=== PATIENT | male | born 1940 | race Caucasian/White ===

== ENCOUNTER 2020-07-23 14:16 | Inpatient (IN) ==
[2020-07-23] MEDS ORDERED: 0.9 % SODIUM CHLORIDE 1,000 ML IV ONE ×2 (14:44→16:33)
--- NOTE | 2020-07-23 15:16 | XRay Report ---
CLINICAL INFORMATION: fall COMPARISON: None. FINDINGS: No fracture identified. There is heavy ossification of the triceps tendon insertion on the olecranon. The elbow joint is normal in width and alignment without arthritic change. Soft tissues normal IMPRESSION: No fracture or posttraumatic change. Heavy ossification triceps tendon insertion on the olecranon likely stigmata of old trauma or inflammation Interpreted and Authenticated by: Arturo Min 07/23/20
--- NOTE | 2020-07-23 15:46 | Emergency Department Note ---
Fall HPI General Chief Complaint: Fall Stated Complaint: fall Time Seen by Provider: 07/23/20 14:44 Source: patient and family Mode of arrival: wheelchair History of Present Illness HPI Narrative: Narrative:80 -year-old with Parkinson's fell twice today. Last time he landed on his left arm and caused a skin tear at the elbow. He denies h itting his head or losing consciousness. He does not feel particularly lightheaded although his blood pressure is low. He is on several medicines which affect his blood pressure. Blood pressure here was in the 70s systolic. Denies fever. Denies significant pain. Denies recent illness His gives me most of his history. Additionally she notes that he had some trouble breathing this morning but it resolved. Related Data Home Medications Medication Instructions Recorded Confirmed carbidopa-levodopa 1 ea PO TID 03/27/16 07/23/20 clonazepam 1 mg PO HS 03/27/16 07/23/20 omeprazole 20 mg PO ACB 03/27/16 07/23/20 aspirin 81 mg tablet,delayed 81 mg PO QDAY 02/15/20 07/23/20 release donepezil 10 mg tablet 10 mg PO DAILY 02/15/20 07/23/20 rosuvastatin 10 mg tablet 10 mg PO QDAY 02/15/20 07/23/20 selegiline HCl 5 mg capsule 5 mg PO BID 02/15/20 07/23/20 spironolactone 25 mg tablet 25 mg PO QDAY 02/15/20 07/23/20 furosemide 20 mg tablet 20 mg PO BID tab 03/16/20 07/23/20 gabapentin 300 mg capsule 300 mg PO TID cap 03/16/20 07/23/20 losartan 100 mg tablet 50 mg PO DAILY tab 03/16/20 07/23/20 clopidogrel 75 mg PO QDAY 07/23/20 07/23/20 quetiapine 25 - 50 mg PO HS 07/23/20 07/23/20 Previous Rx's Medication Instructions Recorded oxybutynin chloride 15 mg 15 mg PO QDAY #30 tab 03/16/20 tablet,extended release 24 hr Allergies Allergy/AdvReac Type Severity Reaction Status Date / Time amlodipine [From Exforge HCT] Allergy Severe Unknown Verified 07/23/20 14:21 bisoprolol [From Ziac] Allergy Severe Unknown Verified 07/23/20 14:21 hydrochlorothiazide Allergy Severe Unknown Verified 07/23/20 14:21 [From Ziac] sulfamethoxazole Allergy Severe Unknown Verified 07/23/20 14:21 [From Septra] trimethoprim [From Septra] Allergy Severe Unknown Verified 07/23/20 14:21 valsartan [From Exforge HCT] Allergy Severe Unknown Verified 07/23/20 14:21 Penicillins [PENICILLINS] Allergy Intermediate RASH Verified 07/23/20 14:21 Beta-Blockers Allergy Unknown Unknown Verified 07/23/20 14:21 (Beta-Adrenergic Bloc Review of Systems ROS ROS Narrative: Narrative: All systems ED: reviewed and negative except as stated. [facility] Narrative Patient History Narrative: Narrative: Medical/Surgical/Family History All Active Problems (Updated 07/23/20 @ 18:20 by Jovanni Toney MD) Acute hypotension (Acute) Fall (Acute) Skin tear (Acute) Increasing shortness of breath (Acute) Atrial fibrillation (Acute) Phimosis of penis (Acute) Constipation (Acute) H/O cystoscopy (Chronic ~12/01/17) Benign neoplasm of parathyroid gland (Chronic) Urge incontinence (Chronic) History of appendectomy (Chronic) H/O shoulder surgery (Chronic ~10/2019) Presence of neurostimulator (Chronic) H/O parathyroidectomy (Chronic) Status post tonsillectomy and adenoidectomy (Chronic) H/O prostatectomy (Chronic) AAA (abdominal aortic aneurysm) (Chronic) Shingles (Chronic) Essential hypertension (Chronic) GERD (gastroesophageal reflux disease) (Chronic) FRANKY (obstructive sleep apnea) (Chronic) Dysesthesia (Chronic) Bradycardia (Chronic) Dyslipidemia (Chronic) Depression (Chronic) Pain in joint, foot, left (Chronic) Increased frequency of urination (Chronic) Other urethral stricture, male, unspecified site (Chronic) Expressive aphasia (Chronic) Actinic keratosis (Chronic) Hallucinations (Chronic) Edema (Chronic) UTI (urinary tract infection) (Chronic) Prostate cancer (Chronic) UTI (urinary tract infection) (Chronic) Paresthesia and pain of left extremity (Chronic) Parkinsons disease (Chronic) TIA on medication (Chronic) Dehydration (Chronic) Orthostatic hypotension (Chronic) Medical History (Updated 07/23/20 @ 18:20 by Jovanni Toney MD) AAA (abdominal aortic aneurysm) (Chronic) Actinic keratosis (Chronic) Benign neoplasm of parathyroid gland (Chronic) Bradycardia (Chronic) Depression (Chronic) Dysesthesia (Chronic) Dyslipidemia (Chronic) Edema (Chronic) Essential hypertension (Chronic) Expressive aphasia (Chronic) GERD (gastroesophageal reflux disease) (Chronic) Hallucinations (Chronic) Increased frequency of urination (Chronic) FRANKY (obstructive sleep apnea) (Chronic) Other urethral stricture, male, unspecified site (Chronic) Pain in joint, foot, left (Chronic) Paresthesia and pain of left extremity (Chronic) Parkinsons disease (Chronic) Prostate cancer (Chronic) Shingles (Chronic) TIA on medication (Chronic) Urge incontinence (Chronic) UTI (urinary tract infection) (Chronic) UTI (urinary tract infection) (Chronic) Surgical History H/O cystoscopy (Chronic ~12/01/17) H/O parathyroidectomy (Chronic) H/O prostatectomy (Chronic) H/O shoulder surgery (Chronic ~10/2019) Left History of appendectomy (Chronic) Presence of neurostimulator (Chronic) Status post tonsillectomy and adenoidectomy (Chronic) Family History Mother Tuberculosis Father HTN (hypertension) Angina at rest Heart disease, congenital Other Myocardial infarction Social History Smoking Status: Former smoker Alcohol Intake Frequency: a few times a week Substance Use: does not use Exam Narrative Narrative: Narrative: No acute distress resting comfortably. Normocephalic atraumatic. Conjunctive are clear sclerae white nonicteric. No nasal congestion or discharge. Oropharynx pink and moist. Neck is supple without lymphadenopathy thyromegaly. Heart is regular rate and rhythm no murmur appreciated. Lungs clear to auscultation bilaterally without wheezes rales rhonchi or respiratory distress. Looking at his left arm he has good polymerization supervisor there. He does have a skin tear lateral portion of the distal tricep measuring approximately 6 cm. He got 2 smaller skin tears at the proximal forearm. These measure approximately 1 to 2 cm each. He is able to move that arm shoulder elbow normally. No other injuries are noted. He is mentating at baseline and able to give me reasonable history. He is answering questions appropriately Course Vital Signs Vital signs: Vital Signs Temperature 97.1 F 07/23/20 14:17 Pulse Rate 75 07/23/20 14:17 Respiratory Rate 20 07/23/20 14:17 Blood Pressure 78/57 07/23/20 14:17 Pulse Oximetry (%) 95 07/23/20 14:17 Temperature 99.0 F 07/23/20 16:54 Pulse Rate 73 07/23/20 18:46 Respiratory Rate 17 07/23/20 18:31 Blood Pressure 130/83 07/23/20 18:46 Pulse Oximetry (%) 96 07/23/20 18:46 MDM MDM Narrative Medical decision making narrative: Narrative: Fall with skin tears. We will x- ray his elbow. Concern for hypotension especially being on multiple blood pressure medicines as well as anticholinergics and Parkinson drugs. We will give him IV fluids to help with his blood pressure and will get some lab. Check EKG as well. EKG shows A. fib -this is chronic for him. He had a watchman procedure done which has not helped him much Reevaluation his forehead was feeling hot to the touch. With additional history from his consider diagnosis of Covid will screen with Ivett. Blood cultures start Rocephin-consider diagnosis of sepsis now. We will keep him in isolation. He does have mild leukocytosis. Blood pressure seems to be responding to fluids Ivett test was negative for Covid but he is starting to develop significant symptoms so concern for sepsis from some infectious issue. Initially the patient and his did not give me a history of respiratory issues but now they are saying that he was short of breath this morning-question the validity of the history I received so far. Anyways we will keep him on isolation precautions and order follow-up testing for Covid. His ankles are starting to swell from the 2 L of normal saline IV fluids we gave him-so there is concern now for making CHF worse in the interest of getting his blood pressure better. We will check a repeat chest x-ray. Orthostatics are significantly abnormal. Urine does not show significant infection Chest x-ray shows no significant change. I revisited with the patient and his . He does have some slightly worse pedal edema. At this time we are working to see if we can get a bed for him because of concern for hypotension-I do not think he is safe to go home as he cannot even stand up at this time because of significant hypotension. We are working on sorting out getting him an appropriate Covid test in a hospital bed and awaiting to hear back from nursing appliance service supervisor Shift change came and I checked the patient out to Dr. Maya for further evaluation and care-final disposition per him-at the time of handoff we were waiting to hear back from nursing appliance service supervisor. Lab Data Lab results reviewed: Yes I reviewed the patient's lab results. Result diagrams: 07/23/20 14:45 Labs: Lab Results 07/23/20 07/23/20 07/23/20 Range/Units 14:45 14:45 14:45 WBC 12.1 H (4.5-11.0) K/mcL RBC 5.31 (4.50-5.90) M/mcL Hgb 16.1 (13.5-16.5) g/dL Hct 48.9 (41.0-55.0) % POC Hct 50 (41-55) % MCV 92.1 (80.0-100.0) fL MCH 30.3 (26.0-34.0) pg MCHC 32.9 (31.0-36.0) g/dL RDW 13.4 (11.5-14.5) % Plt Count 205 (140-440) K/mcL MPV 11.2 H (7.4-10.4) fL Neut % (Auto) 72.8 (38.0-78.0) % Lymph % (Auto) 15.5 (15.0-49.0) % [place] % (Auto) 8.0 (1.0-12.0) % Eos % (Auto) 3.1 (0.0-7.0) % Baso % (Auto) 0.6 (0.0-2.0) % Lymph # (Auto) 1.88 (1.50-4.80) K/mcL Dillon # (Auto) 0.97 H (0.10-0.90) K/mcL Eos # (Auto) 0.37 (0.00-0.70) K/mcL Baso # (Auto) 0.07 (0.00-0.20) K/mcL Absolute Neutrophils 8.81 H (1.80-8.00) K/mcL VBG Lactic Acid (0.5-2.0) mmol/L POC Sodium 143 (133-145) mEq/L POC Potassium 3.7 (3.3-5.1) mEql/L POC Chloride 105 (96-108) mEq/L POC Total CO2 26 (22-30) mmol/L POC BUN 27 H (6-20) mg/dL POC Creatinine 1.5 H (0.6-1.2) mg/dL POC Glucose 84 (70-105) mg/dL POC WB Ioniz Calcium 1.00 L (1.16-1.32) mmEq/L Procalcitonin 0.10 H (<0.10) ng/mL Urine Color Urine Appearance (Clear) Urine pH (5.0-9.0) Ur Specific [place] (1.000-1.035) Urine Protein (Negative) mg/dL Urine Glucose (UA) (Negative) mg/dL Urine Ketones (Negative) mg/dL Urine Occult Blood (Negative) mg/dL Urine Nitrate (Negative) Urine Bilirubin (Negative) mg/dL Urine Urobilinogen mg/dL Ur Leukocyte Esterase (Negative) /ug Urine RBC (0-3) /hpf Urine WBC (0-4) /hpf Ur Squamous Epith Cells (0-4) /hpf Urine Bacteria (0) /hpf Hyaline Casts (0-2) /lph Urine Mucus (None) /hpf Ur Culture Indicated? 07/23/20 07/23/20 Range/Units 15:14 15:47 WBC (4.5-11.0) K/mcL RBC (4.50-5.90) M/mcL Hgb (13.5-16.5) g/dL Hct (41.0-55.0) % POC Hct (41-55) % MCV (80.0-100.0) fL MCH (26.0-34.0) pg MCHC (31.0-36.0) g/dL RDW (11.5-14.5) % Plt Count (140-440) K/mcL MPV (7.4-10.4) fL Neut % (Auto) (38.0-78.0) % Lymph % (Auto) (15.0-49.0) % [place] % (Auto) (1.0-12.0) % Eos % (Auto) (0.0-7.0) % Baso % (Auto) (0.0-2.0) % Lymph # (Auto) (1.50-4.80) K/mcL [place] # (Auto) (0.10-0.90) K/mcL Eos # (Auto) (0.00-0.70) K/mcL Baso # (Auto) (0.00-0.20) K/mcL Absolute Neutrophils (1.80-8.00) K/mcL VBG Lactic Acid 1.9 (0.5-2.0) mmol/L POC Sodium (133-145) mEq/L POC Potassium (3.3-5.1) mEql/L POC Chloride (96-108) mEq/L POC Total CO2 (22-30) mmol/L POC BUN (6-20) mg/dL POC Creatinine (0.6-1.2) mg/dL POC Glucose (70-105) mg/dL POC WB Ioniz Calcium (1.16-1.32) mmEq/L Procalcitonin (<0.10) ng/mL Urine Color Yellow Urine Appearance Clear (Clear) Urine pH 5.0 (5.0-9.0) Ur Specific [place] 1.014 (1.000-1.035) Urine Protein 30 A (Negative) mg/dL Urine Glucose (UA) Negative (Negative) mg/dL Urine Ketones Negative (Negative) mg/dL Urine Occult Blood 0.03 (Negative) mg/dL Urine Nitrate Negative (Negative) Urine Bilirubin Negative (Negative) mg/dL Urine Urobilinogen Negative mg/dL Ur Leukocyte Esterase Negative (Negative) /ug Urine RBC 2 (0-3) /hpf Urine WBC 4 (0-4) /hpf Ur Squamous Epith Cells 2 (0-4) /hpf Urine Bacteria None (0) /hpf Hyaline Casts 16 H (0-2) /lph Urine Mucus Many A (None) /hpf Ur Culture Indicated? No Radiology Data Radiology results reviewed: Yes I reviewed the patient's radiology results. Radiology results narrative: X-ray of the elbow shows no acute finding. Chronic findings on report EKG Data EKG #1: EKG attestation: Yes I reviewed and interpreted this EKG. EKG results narrative: Atrial fibrillation with right bundle branch block Discharge Plan Patient/Caregiver Discharge Instructions Pt seen by A R SPECIALIST/PA only: No Clinical Impression: Acute hypotension, Skin tear, Increasing shortness of breath Atrial fibrillation Qualifiers: Atrial fibrillation type: unspecified chronic Qualified Code(s): I48.20 - Chronic atrial fibrillation, unspecified Fall Qualifiers: Encounter type: initial encounter Qualified Code(s): W19.XXXA - Unspecified fall, initial encounter Patient Disposition: Still a Patient Condition: Fair Follow up with: Brian Adam MD [Primary Care Provider] - Prescriptions: No Action spironolactone 25 mg tablet 25 mg PO QDAY RF: 0 aspirin [Adult Low Dose Aspirin] 81 mg tablet,delayed release (DR/EC) 81 mg PO QDAY RF: 0 selegiline HCl 5 mg capsule 5 mg PO BID RF: 0 donepezil 10 mg tablet 10 mg PO DAILY RF: 0 rosuvastatin 10 mg tablet 10 mg PO QDAY RF: 0 furosemide 20 mg tablet 20 mg PO BID RF: 0 gabapentin 300 mg capsule 300 mg PO TID RF: 0 clonazepam 1 MG tablet 1 mg PO HS RF: 0 omeprazole 20 MG capsule 20 mg PO ACB RF: 0 carbidopa-levodopa 1 EACH tablet,disintegrating 1 ea PO TID RF: 0 losartan 100 mg tablet 50 mg PO DAILY RF: 0 clopidogrel 75 mg Tablet 75 mg PO QDAY RF: 0 quetiapine 50 mg tablet 25 - 50 mg PO HS RF: 0 oxybutynin chloride 15 mg tablet extended release 24hr 15 mg PO QDAY Qty: 30 RF: 11
[2020-07-23 15:49] LABS: POC Blood Urea Nitrogen 27 mg/dL (6-20); POC CO2 26 mmol/L (22-30); POC Chloride 105 mEq/L (96-108); POC Creatinine 1.5 mg/dL (0.6-1.2); POC Glucose, Random 84 mg/dL (70-105); POC Hematocrit 50 % (41-55); POC Potassium 3.7 mEql/L (3.3-5.1); POC Sodium 143 mEq/L (133-145)
[2020-07-23 15:56] LABS: Basophils # (Auto) 0.07 K/mcL (0.00-0.20); Basophils % (Auto) 0.6 % (0.0-2.0); Eosinophils # (Auto) 0.37 K/mcL (0.00-0.70); Eosinophils % (Auto) 3.1 % (0.0-7.0); Hematocrit 48.9 % (41.0-55.0); Hemoglobin 16.1 g/dL (13.5-16.5); Lymphocytes # (Auto) 1.88 K/mcL (1.50-4.80); Lymphocytes % (Auto) 15.5 % (15.0-49.0); Mean Cell Volume 92.1 fL (80.0-100.0); Mean Corpuscular HGB Conc 32.9 g/dL (31.0-36.0); Mean Platelet Volume 11.2 fL (7.4-10.4); Monocytes # (Auto) 0.97 K/mcL (0.10-0.90); Neutrophils % (Auto) 72.8 % (38.0-78.0); Platelet Count 205 K/mcL (140-440); RBC 5.31 M/mcL (4.50-5.90); Red Cell Distribution Width 13.4 % (11.5-14.5); WBC 12.1 K/mcL (4.5-11.0)
--- NOTE | 2020-07-23 16:31 | XRay Report ---
CLINICAL INFORMATION: SOB COMPARISON: None. FINDINGS: Heart size, mediastinum and pulmonary vessels are unremarkable. Battery pack and lead wires from presumed thalamic stimulators are unremarkable. There is minor bibasilar atelectasis. No effusion IMPRESSION: Negative exam Interpreted and Authenticated by: Arturo Min 07/23/20
[2020-07-23] MEDS ORDERED: cefTRIAXone 1 GM VIAL IV ONE (16:33)
[2020-07-23 16:46] LABS: Appearance,Urine CLEAR (Clear); Bilirubin,Urine Negative (Negative); Color,Urine YELLOW; Culture Indicated,Urine No; Glucose,Urine (UA) Negative (Negative); Ketones,Urine Negative (Negative); Leukocyte Esterase,Urine Negative /ug (Negative); Mucus,Urine MANY /hpf; Nitrate,Urine Negative (Negative); Protein,Urine 30 mg/dL (Negative); Specific Gravity,Urine 1.014 (1.000-1.035); Urine Blood 0.03 mg/dL (Negative); Urine Hyaline Cast 16 /lph (0-2); Urine RBC 2 /hpf (0-3); Urine Squamous Epithelial Cell 2 /hpf (0-4); Urine WBC 4 /hpf (0-4); Urobilinogen,Urine Negative
--- NOTE | 2020-07-23 19:28 | Emergency Department Note ---
HPI General Chief complaint: Fall Stated complaint: fall Time Seen by Provider: 07/23/20 14:44 Source: patient and family Mode of arrival: wheelchair Limitations: no limitations History of Present Illness HPI Narrative: Narrative: Patient signed out to me by Dr. Curtis for full history and physical please refer to his note. Related Data Home Medications Medication Instructions Recorded Confirmed carbidopa-levodopa 1 ea PO TID 03/27/16 07/23/20 clonazepam 1 mg PO HS 03/27/16 07/23/20 omeprazole 20 mg PO ACB 03/27/16 07/23/20 aspirin 81 mg tablet,delayed 81 mg PO QDAY 02/15/20 07/23/20 release donepezil 10 mg tablet 10 mg PO DAILY 02/15/20 07/23/20 rosuvastatin 10 mg tablet 10 mg PO QDAY 02/15/20 07/23/20 selegiline HCl 5 mg capsule 5 mg PO BID 02/15/20 07/23/20 spironolactone 25 mg tablet 25 mg PO QDAY 02/15/20 07/23/20 furosemide 20 mg tablet 20 mg PO BID tab 03/16/20 07/23/20 gabapentin 300 mg capsule 300 mg PO TID cap 03/16/20 07/23/20 losartan 100 mg tablet 50 mg PO DAILY tab 03/16/20 07/23/20 clopidogrel 75 mg PO QDAY 07/23/20 07/23/20 quetiapine 25 - 50 mg PO HS 07/23/20 07/23/20 Previous Rx's Medication Instructions Recorded oxybutynin chloride 15 mg 15 mg PO QDAY #30 tab 03/16/20 tablet,extended release 24 hr Allergies Allergy/AdvReac Type Severity Reaction Status Date / Time amlodipine [From Exforge HCT] Allergy Severe Unknown Verified 07/23/20 14:21 bisoprolol [From Ziac] Allergy Severe Unknown Verified 07/23/20 14:21 hydrochlorothiazide Allergy Severe Unknown Verified 07/23/20 14:21 [From Ziac] sulfamethoxazole Allergy Severe Unknown Verified 07/23/20 14:21 [From Septra] trimethoprim [From Septra] Allergy Severe Unknown Verified 07/23/20 14:21 valsartan [From Exforge HCT] Allergy Severe Unknown Verified 07/23/20 14:21 Penicillins [PENICILLINS] Allergy Intermediate RASH Verified 07/23/20 14:21 Beta-Blockers Allergy Unknown Unknown Verified 07/23/20 14:21 (Beta-Adrenergic Bloc Review of Systems ROS ROS Narrative: Narrative: PFSH Narrative Patient History Narrative: Narrative: Medical/Surgical/Family History All Active Problems (Updated 07/23/20 @ 18:20 by Jovanni Toney MD) Acute hypotension (Acute) Fall (Acute) Skin tear (Acute) Increasing shortness of breath (Acute) Atrial fibrillation (Acute) Phimosis of penis (Acute) Constipation (Acute) H/O cystoscopy (Chronic ~12/01/17) Benign neoplasm of parathyroid gland (Chronic) Urge incontinence (Chronic) History of appendectomy (Chronic) H/O shoulder surgery (Chronic ~10/2019) Presence of neurostimulator (Chronic) H/O parathyroidectomy (Chronic) Status post tonsillectomy and adenoidectomy (Chronic) H/O prostatectomy (Chronic) AAA (abdominal aortic aneurysm) (Chronic) Shingles (Chronic) Essential hypertension (Chronic) GERD (gastroesophageal reflux disease) (Chronic) FRANKY (obstructive sleep apnea) (Chronic) Dysesthesia (Chronic) Bradycardia (Chronic) Dyslipidemia (Chronic) Depression (Chronic) Pain in joint, foot, left (Chronic) Increased frequency of urination (Chronic) Other urethral stricture, male, unspecified site (Chronic) Expressive aphasia (Chronic) Actinic keratosis (Chronic) Hallucinations (Chronic) Edema (Chronic) UTI (urinary tract infection) (Chronic) Prostate cancer (Chronic) UTI (urinary tract infection) (Chronic) Paresthesia and pain of left extremity (Chronic) Parkinsons disease (Chronic) TIA on medication (Chronic) Dehydration (Chronic) Orthostatic hypotension (Chronic) Medical History (Updated 07/23/20 @ 18:20 by Jovanni Toney MD) AAA (abdominal aortic aneurysm) (Chronic) Actinic keratosis (Chronic) Benign neoplasm of parathyroid gland (Chronic) Bradycardia (Chronic) Depression (Chronic) Dysesthesia (Chronic) Dyslipidemia (Chronic) Edema (Chronic) Essential hypertension (Chronic) Expressive aphasia (Chronic) GERD (gastroesophageal reflux disease) (Chronic) Hallucinations (Chronic) Increased frequency of urination (Chronic) FRANKY (obstructive sleep apnea) (Chronic) Other urethral stricture, male, unspecified site (Chronic) Pain in joint, foot, left (Chronic) Paresthesia and pain of left extremity (Chronic) Parkinsons disease (Chronic) Prostate cancer (Chronic) Shingles (Chronic) TIA on medication (Chronic) Urge incontinence (Chronic) UTI (urinary tract infection) (Chronic) UTI (urinary tract infection) (Chronic) Surgical History H/O cystoscopy (Chronic ~12/01/17) H/O parathyroidectomy (Chronic) H/O prostatectomy (Chronic) H/O shoulder surgery (Chronic ~10/2019) Left History of appendectomy (Chronic) Presence of neurostimulator (Chronic) Status post tonsillectomy and adenoidectomy (Chronic) Family History Mother Tuberculosis Father HTN (hypertension) Angina at rest Heart disease, congenital Other Myocardial infarction Social History Smoking Status: Former smoker Alcohol Intake Frequency: a few times a week Substance Use: does not use Exam Narrative Narrative: Narrative: General Limitations: no limitations Course Vital Signs Vital signs: Vital Signs Temperature 97.1 F 07/23/20 14:17 Pulse Rate 75 07/23/20 14:17 Respiratory Rate 20 07/23/20 14:17 Blood Pressure 78/57 07/23/20 14:17 Pulse Oximetry (%) 95 07/23/20 14:17 Temperature 99.0 F 07/23/20 16:54 Pulse Rate 65 07/23/20 19:41 Respiratory Rate 19 07/23/20 19:41 Blood Pressure 128/84 07/23/20 19:41 Pulse Oximetry (%) 96 07/23/20 19:41 MDM MDM Narrative Medical decision making narrative: Narrative: Patient signed out to me pending admission. I did speak with Dr. Lowery who did agree to admit the patient to their facility. Patient is admitted in stable condition. Lab Data Result diagrams: 07/23/20 14:45 07/23/20 14:45 Labs: Lab Results 07/23/20 07/23/20 07/23/20 Range/Units 14:45 14:45 14:45 WBC 12.1 H (4.5-11.0) K/mcL RBC 5.31 (4.50-5.90) M/mcL Hgb 16.1 (13.5-16.5) g/dL Hct 48.9 (41.0-55.0) % POC Hct 50 (41-55) % MCV 92.1 (80.0-100.0) fL MCH 30.3 (26.0-34.0) pg MCHC 32.9 (31.0-36.0) g/dL RDW 13.4 (11.5-14.5) % Plt Count 205 (140-440) K/mcL MPV 11.2 H (7.4-10.4) fL Neut % (Auto) 72.8 (38.0-78.0) % Lymph % (Auto) 15.5 (15.0-49.0) % [place] % (Auto) 8.0 (1.0-12.0) % Eos % (Auto) 3.1 (0.0-7.0) % Baso % (Auto) 0.6 (0.0-2.0) % Lymph # (Auto) 1.88 (1.50-4.80) K/mcL [place] # (Auto) 0.97 H (0.10-0.90) K/mcL Eos # (Auto) 0.37 (0.00-0.70) K/mcL Baso # (Auto) 0.07 (0.00-0.20) K/mcL Absolute Neutrophils 8.81 H (1.80-8.00) K/mcL VBG Lactic Acid (0.5-2.0) mmol/L POC Sodium 143 (133-145) mEq/L Sodium (133-145) mmol/L POC Potassium 3.7 (3.3-5.1) mEql/L Potassium (3.3-5.1) mmol/L POC Chloride 105 (96-108) mEq/L Chloride (96-108) mmol/L Carbon Dioxide (22-30) mmol/L POC Total CO2 26 (22-30) mmol/L Anion Gap (8.0-16.0) POC BUN 27 H (6-20) mg/dL BUN (8-23) mg/dL Creatinine (0.7-1.2) mg/dL POC Creatinine 1.5 H (0.6-1.2) mg/dL GFR Calculation Glucose (70-105) mg/dL POC Glucose 84 (70-105) mg/dL Uric Acid (2.5-8.0) mg/dL Calcium (8.6-10.4) mg/dL POC WB Ioniz Calcium 1.00 L (1.16-1.32) mmEq/L Phosphorus (2.5-4.5) mg/dL Magnesium (1.6-2.5) mg/dL Total Bilirubin (0.1-1.0) mg/dL Direct Bilirubin (<0.3) mg/dL GGT (8-61) U/L AST (<40) U/L ALT (<40) U/L Alkaline Phosphatase (39-117) U/L Lactate Dehydrogenase (135-225) U/L Total Protein (5.9-8.4) gm/dL Albumin (3.2-5.2) gm/dL Globulin (2.2-3.7) gm/dL Albumin/Globulin Ratio (1.0-2.3) Triglycerides (<150) mg/dL Procalcitonin 0.10 H (<0.10) ng/mL Urine Color Urine Appearance (Clear) Urine pH (5.0-9.0) Ur Specific [place] (1.000-1.035) Urine Protein (Negative) mg/dL Urine Glucose (UA) (Negative) mg/dL Urine Ketones (Negative) mg/dL Urine Occult Blood (Negative) mg/dL Urine Nitrate (Negative) Urine Bilirubin (Negative) mg/dL Urine Urobilinogen mg/dL Ur Leukocyte Esterase (Negative) /ug Urine RBC (0-3) /hpf Urine WBC (0-4) /hpf Ur Squamous Epith Cells (0-4) /hpf Urine Bacteria (0) /hpf Hyaline Casts (0-2) /lph Urine Mucus (None) /hpf Ur Culture Indicated? 07/23/20 07/23/20 07/23/20 Range/Units 14:45 15:14 15:47 WBC (4.5-11.0) K/mcL RBC (4.50-5.90) M/mcL Hgb (13.5-16.5) g/dL Hct (41.0-55.0) % POC Hct (41-55) % MCV (80.0-100.0) fL MCH (26.0-34.0) pg MCHC (31.0-36.0) g/dL RDW (11.5-14.5) % Plt Count (140-440) K/mcL MPV (7.4-10.4) fL Neut % (Auto) (38.0-78.0) % Lymph % (Auto) (15.0-49.0) % [place] % (Auto) (1.0-12.0) % Eos % (Auto) (0.0-7.0) % Baso % (Auto) (0.0-2.0) % Lymph # (Auto) (1.50-4.80) K/mcL [place] # (Auto) (0.10-0.90) K/mcL Eos # (Auto) (0.00-0.70) K/mcL Baso # (Auto) (0.00-0.20) K/mcL Absolute Neutrophils (1.80-8.00) K/mcL VBG Lactic Acid 1.9 (0.5-2.0) mmol/L POC Sodium (133-145) mEq/L Sodium 142 (133-145) mmol/L POC Potassium (3.3-5.1) mEql/L Potassium 3.8 (3.3-5.1) mmol/L POC Chloride (96-108) mEq/L Chloride 102 (96-108) mmol/L Carbon Dioxide 20 L (22-30) mmol/L POC Total CO2 (22-30) mmol/L Anion Gap 20.0 H (8.0-16.0) POC BUN (6-20) mg/dL BUN 24 H (8-23) mg/dL Creatinine 1.5 H (0.7-1.2) mg/dL POC Creatinine (0.6-1.2) mg/dL GFR Calculation 44 Glucose 83 (70-105) mg/dL POC Glucose (70-105) mg/dL Uric Acid 7.0 (2.5-8.0) mg/dL Calcium 9.0 (8.6-10.4) mg/dL POC WB Ioniz Calcium (1.16-1.32) mmEq/L Phosphorus 2.2 L (2.5-4.5) mg/dL Magnesium 2.3 (1.6-2.5) mg/dL Total Bilirubin 0.4 (0.1-1.0) mg/dL Direct Bilirubin < 0.2 (<0.3) mg/dL GGT 16 (8-61) U/L AST 30 (<40) U/L ALT 21 (<40) U/L Alkaline Phosphatase 106 (39-117) U/L Lactate Dehydrogenase 236 H (135-225) U/L Total Protein 6.7 (5.9-8.4) gm/dL Albumin 4.0 (3.2-5.2) gm/dL Globulin 2.7 (2.2-3.7) gm/dL Albumin/Globulin Ratio 1.5 (1.0-2.3) Triglycerides 94 (<150) mg/dL Procalcitonin (<0.10) ng/mL Urine Color Yellow Urine Appearance Clear (Clear) Urine pH 5.0 (5.0-9.0) Ur Specific [place] 1.014 (1.000-1.035) Urine Protein 30 A (Negative) mg/dL Urine Glucose (UA) Negative (Negative) mg/dL Urine Ketones Negative (Negative) mg/dL Urine Occult Blood 0.03 (Negative) mg/dL Urine Nitrate Negative (Negative) Urine Bilirubin Negative (Negative) mg/dL Urine Urobilinogen Negative mg/dL Ur Leukocyte Esterase Negative (Negative) /ug Urine RBC 2 (0-3) /hpf Urine WBC 4 (0-4) /hpf Ur Squamous Epith Cells 2 (0-4) /hpf Urine Bacteria None (0) /hpf Hyaline Casts 16 H (0-2) /lph Urine Mucus Many A (None) /hpf Ur Culture Indicated? No Discharge Plan Patient/Caregiver Discharge Instructions Pt seen by PROPERTY ANALYST/PA only: No Clinical Impression: Acute hypotension, Skin tear, Increasing shortness of breath Atrial fibrillation Qualifiers: Atrial fibrillation type: unspecified chronic Qualified Code(s): I48.20 - Chronic atrial fibrillation, unspecified Fall Qualifiers: Encounter type: initial encounter Qualified Code(s): W19.XXXA - Unspecified fall, initial encounter Patient Disposition: Xfer As Inpt ([facility]) Condition: Fair Follow up with: Brian Adam MD [Primary Care Provider] - Prescriptions: No Action spironolactone 25 mg tablet 25 mg PO QDAY RF: 0 aspirin [Adult Low Dose Aspirin] 81 mg tablet,delayed release (DR/EC) 81 mg PO QDAY RF: 0 selegiline HCl 5 mg capsule 5 mg PO BID RF: 0 donepezil 10 mg tablet 10 mg PO DAILY RF: 0 rosuvastatin 10 mg tablet 10 mg PO QDAY RF: 0 furosemide 20 mg tablet 20 mg PO BID RF: 0 gabapentin 300 mg capsule 300 mg PO TID RF: 0 clonazepam 1 MG tablet 1 mg PO HS RF: 0 omeprazole 20 MG capsule 20 mg PO ACB RF: 0 carbidopa-levodopa 1 EACH tablet,disintegrating 1 ea PO TID RF: 0 losartan 100 mg tablet 50 mg PO DAILY RF: 0 clopidogrel 75 mg Tablet 75 mg PO QDAY RF: 0 quetiapine 50 mg tablet 25 - 50 mg PO HS RF: 0 oxybutynin chloride 15 mg tablet extended release 24hr 15 mg PO QDAY Qty: 30 RF: 11
--- NOTE | 2020-07-23 20:05 | Internal Med History&Physical ---
HPI History of Present Illness Patient information: Note initiated : 07/23/20 at 7:50 pm Service Date, if different from initiated Date: [] Patient: Manny Islas a 80 y/o M admitted on for fall. Chief Complaint: [] History of present illness: Mr. Islas is a 80 year old M Who presents after falling several times a day. Patient has a history of Parkinson's. And per his he has been getting weaker over the past 6 to 12 months. He does have a history of peripheral edema and is on furosemide and spironolactone. His furosemide was increased lately. Is also on gabapentin. Per his he has episodes where he seems weaker and not doing well this happens probably once a week. It is times where he will fall multiple times in a day and then will not fall at all for couple weeks. The reason his brought him in today is because when he fell he developed large wound on his arm and when EMS arrived to help bandage it they recommended him going to the ER. In ER was hypotensive with a 78/57 receive IV fluid with resolution of his blood pressure. Per the ER note he had positive orthostatic vital signs. He is weak and unable to stand. Per his he said he was little short of breath this morning but did not resolve. Has a mild cough. Him and his report that he does cough with food and drink and taking medications. Chest x-ray was done several times and was unremarkable. Calcitonin was low. He had a mildly elevated white blood cell count but was afebrile. Urinalysis was unremarkable. He has a history of paroxysmal atrial fibrillation and had a watchman device placed at [facility] in February. At that time he was continued on his aspirin and started on Xarelto for 6 weeks and then after 6 weeks of Xarelto was stopped and was put back on his Plavix. He has a history of TIAs An echocardiogram showed good ejection fraction and good right ventricular systolic function. Review of Systems: Positives as above. Denies headache/fever/chills/nausea/vomiting/chest or abdominal pain/diarrhea. Remaining 10 point review of system reviewed negative PFSH PFSH All Active Problems (Updated 07/23/20 @ 18:20 by Jovanni Toney MD) Acute hypotension (Acute) Fall (Acute) Skin tear (Acute) Increasing shortness of breath (Acute) Atrial fibrillation (Acute) Phimosis of penis (Acute) Constipation (Acute) H/O cystoscopy (Chronic ~12/01/17) Benign neoplasm of parathyroid gland (Chronic) Urge incontinence (Chronic) History of appendectomy (Chronic) H/O shoulder surgery (Chronic ~10/2019) Presence of neurostimulator (Chronic) H/O parathyroidectomy (Chronic) Status post tonsillectomy and adenoidectomy (Chronic) H/O prostatectomy (Chronic) AAA (abdominal aortic aneurysm) (Chronic) Shingles (Chronic) Essential hypertension (Chronic) GERD (gastroesophageal reflux disease) (Chronic) FRANKY (obstructive sleep apnea) (Chronic) Dysesthesia (Chronic) Bradycardia (Chronic) Dyslipidemia (Chronic) Depression (Chronic) Pain in joint, foot, left (Chronic) Increased frequency of urination (Chronic) Other urethral stricture, male, unspecified site (Chronic) Expressive aphasia (Chronic) Actinic keratosis (Chronic) Hallucinations (Chronic) Edema (Chronic) UTI (urinary tract infection) (Chronic) Prostate cancer (Chronic) UTI (urinary tract infection) (Chronic) Paresthesia and pain of left extremity (Chronic) Parkinsons disease (Chronic) TIA on medication (Chronic) Dehydration (Chronic) Orthostatic hypotension (Chronic) Medical History (Updated 07/23/20 @ 18:20 by Jovanni Toney MD) AAA (abdominal aortic aneurysm) (Chronic) Actinic keratosis (Chronic) Benign neoplasm of parathyroid gland (Chronic) Bradycardia (Chronic) Depression (Chronic) Dysesthesia (Chronic) Dyslipidemia (Chronic) Edema (Chronic) Essential hypertension (Chronic) Expressive aphasia (Chronic) GERD (gastroesophageal reflux disease) (Chronic) Hallucinations (Chronic) Increased frequency of urination (Chronic) FRANKY (obstructive sleep apnea) (Chronic) Other urethral stricture, male, unspecified site (Chronic) Pain in joint, foot, left (Chronic) Paresthesia and pain of left extremity (Chronic) Parkinsons disease (Chronic) Prostate cancer (Chronic) Shingles (Chronic) TIA on medication (Chronic) Urge incontinence (Chronic) UTI (urinary tract infection) (Chronic) UTI (urinary tract infection) (Chronic) Surgical History H/O cystoscopy (Chronic ~12/01/17) H/O parathyroidectomy (Chronic) H/O prostatectomy (Chronic) H/O shoulder surgery (Chronic ~10/2019) Left History of appendectomy (Chronic) Presence of neurostimulator (Chronic) Status post tonsillectomy and adenoidectomy (Chronic) Family History Mother Tuberculosis Father HTN (hypertension) Angina at rest Heart disease, congenital Other Myocardial infarction Social History marital status: occupational status: retired smoking status: Former smoker alcohol intake frequency: a few times a week substance use type: does not use MEDS/ALLERGIES Home Medications and Allergies Home Medications Medication Instructions Recorded Confirmed Type carbidopa-levodopa 1 ea PO TID 03/27/16 07/23/20 History clonazepam 1 mg PO HS 03/27/16 07/23/20 History omeprazole 20 mg PO ACB 03/27/16 07/23/20 History aspirin 81 mg tablet,delayed 81 mg PO QDAY 02/15/20 07/23/20 History release donepezil 10 mg tablet 10 mg PO DAILY 02/15/20 07/23/20 History rosuvastatin 10 mg tablet 10 mg PO QDAY 02/15/20 07/23/20 History selegiline HCl 5 mg capsule 5 mg PO BID 02/15/20 07/23/20 History spironolactone 25 mg tablet 25 mg PO QDAY 02/15/20 07/23/20 History furosemide 20 mg tablet 20 mg PO BID tab 03/16/20 07/23/20 History gabapentin 300 mg capsule 300 mg PO TID cap 03/16/20 07/23/20 History losartan 100 mg tablet 50 mg PO DAILY tab 03/16/20 07/23/20 History oxybutynin chloride 15 mg 15 mg PO QDAY #30 tab 03/16/20 07/23/20 Rx tablet,extended release 24 hr clopidogrel 75 mg PO QDAY 07/23/20 07/23/20 History quetiapine 25 - 50 mg PO HS 07/23/20 07/23/20 History Allergies Allergy/AdvReac Type Severity Reaction Status Date / Time amlodipine [From Exforge HCT] Allergy Severe Unknown Verified 07/23/20 14:21 bisoprolol [From Ziac] Allergy Severe Unknown Verified 07/23/20 14:21 hydrochlorothiazide Allergy Severe Unknown Verified 07/23/20 14:21 [From Ziac] sulfamethoxazole Allergy Severe Unknown Verified 07/23/20 14:21 [From Septra] trimethoprim [From Septra] Allergy Severe Unknown Verified 07/23/20 14:21 valsartan [From Exforge HCT] Allergy Severe Unknown Verified 07/23/20 14:21 Penicillins [PENICILLINS] Allergy Intermediate RASH Verified 07/23/20 14:21 Beta-Blockers Allergy Unknown Unknown Verified 07/23/20 14:21 (Beta-Adrenergic Bloc EXAM Constitutional Vitals: Temp Pulse Resp BP Pulse Ox 99.0 F 73 17 133/83 98 07/23/20 16:54 07/23/20 19:16 07/23/20 19:16 07/23/20 19:16 07/23/20 19:16 Exam: General: Appears weak, No acute Distress Eyes/N/T: EOMI, PERRL, dry MM Head/Neck: neck supple, normocephalic atraumatic CV: irre irreg, No murmurs, normal s1/s2 Pulm: Clear b/l, no wheezing/rhonchi/rales Abd: soft, nontender, +BS x4 Ext: no clubbing/cyanosis 2+ b/l LE Neuro: Somewhat lethargic, no focal deficits, moves all extremities, CN 2-12 grossly intact, symmetrical strength b/l upper/lower, sensations intact b/l upper/lower Skin: warm/dry DATA Data Completed and Pending Labs: Labs from last 24 hours 07/23/20 07/23/20 07/23/20 15:47 15:14 14:45 WBC RBC Hgb Hct POC Hct MCV MCH MCHC RDW Plt Count MPV Neut % (Auto) Lymph % (Auto) [place] % (Auto) Eos % (Auto) Baso % (Auto) Lymph # (Auto) [place] # (Auto) Eos # (Auto) Baso # (Auto) Absolute Neutrophils Platelet Estimate RBC Morphology VBG Lactic Acid 1.9 POC Sodium Sodium Pending POC Potassium Potassium Pending POC Chloride Chloride Pending Carbon Dioxide Pending POC Total CO2 Anion Gap Pending POC BUN BUN Pending Creatinine Pending POC Creatinine GFR Calculation Pending Glucose Pending POC Glucose Uric Acid Pending Calcium Pending POC WB Ioniz Calcium Phosphorus Pending Magnesium Pending Total Bilirubin Pending Direct Bilirubin Pending GGT Pending AST Pending ALT Pending Alkaline Phosphatase Pending Lactate Dehydrogenase Pending Total Protein Pending Albumin Pending Globulin Pending Albumin/Globulin Ratio Pending Triglycerides Pending Procalcitonin Urine Color Yellow Urine Appearance Clear Urine pH 5.0 Ur Specific [place] 1.014 Urine Protein 30 A Urine Glucose (UA) Negative Urine Ketones Negative Urine Occult Blood 0.03 Urine Nitrate Negative Urine Bilirubin Negative Urine Urobilinogen Negative Ur Leukocyte Esterase Negative Urine RBC 2 Urine WBC 4 Ur Squamous Epith Cells 2 Urine Bacteria None Hyaline Casts 16 H Urine Mucus Many A Ur Culture Indicated? No 07/23/20 07/23/20 07/23/20 14:45 14:45 14:45 WBC RBC Hgb Hct POC Hct 50 MCV MCH MCHC RDW Plt Count MPV Neut % (Auto) Lymph % (Auto) [place] % (Auto) Eos % (Auto) Baso % (Auto) Lymph # (Auto) [place] # (Auto) Eos # (Auto) Baso # (Auto) Absolute Neutrophils Platelet Estimate Pending RBC Morphology Pending VBG Lactic Acid POC Sodium 143 Sodium POC Potassium 3.7 Potassium POC Chloride 105 Chloride Carbon Dioxide POC Total CO2 26 Anion Gap POC BUN 27 H BUN Creatinine POC Creatinine 1.5 H GFR Calculation Glucose POC Glucose 84 Uric Acid Calcium POC WB Ioniz Calcium 1.00 L Phosphorus Magnesium Total Bilirubin Direct Bilirubin GGT AST ALT Alkaline Phosphatase Lactate Dehydrogenase Total Protein Albumin Globulin Albumin/Globulin Ratio Triglycerides Procalcitonin 0.10 H Urine Color Urine Appearance Urine pH Ur Specific [place] Urine Protein Urine Glucose (UA) Urine Ketones Urine Occult Blood Urine Nitrate Urine Bilirubin Urine Urobilinogen Ur Leukocyte Esterase Urine RBC Urine WBC Ur Squamous Epith Cells Urine Bacteria Hyaline Casts Urine Mucus Ur Culture Indicated? 07/23/20 14:45 WBC 12.1 H RBC 5.31 Hgb 16.1 Hct 48.9 POC Hct MCV 92.1 MCH 30.3 MCHC 32.9 RDW 13.4 Plt Count 205 MPV 11.2 H Neut % (Auto) 72.8 Lymph % (Auto) 15.5 [place] % (Auto) 8.0 Eos % (Auto) 3.1 Baso % (Auto) 0.6 Lymph # (Auto) 1.88 [place] # (Auto) 0.97 H Eos # (Auto) 0.37 Baso # (Auto) 0.07 Absolute Neutrophils 8.81 H Platelet Estimate RBC Morphology VBG Lactic Acid POC Sodium Sodium POC Potassium Potassium POC Chloride Chloride Carbon Dioxide POC Total CO2 Anion Gap POC BUN BUN Creatinine POC Creatinine GFR Calculation Glucose POC Glucose Uric Acid Calcium POC WB Ioniz Calcium Phosphorus Magnesium Total Bilirubin Direct Bilirubin GGT AST ALT Alkaline Phosphatase Lactate Dehydrogenase Total Protein Albumin Globulin Albumin/Globulin Ratio Triglycerides Procalcitonin Urine Color Urine Appearance Urine pH Ur Specific [place] Urine Protein Urine Glucose (UA) Urine Ketones Urine Occult Blood Urine Nitrate Urine Bilirubin Urine Urobilinogen Ur Leukocyte Esterase Urine RBC Urine WBC Ur Squamous Epith Cells Urine Bacteria Hyaline Casts Urine Mucus Ur Culture Indicated? A/P Narrative A/P Narrative: A: *Hypotension: responded initially to IVF. 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: 2/2 above *Encephalopathy/Gen weakness/Falls: 2/2 parkison's + plus meds (diuretics/Gabapentin) *Parkinson's: declining over past year per *Dementia: *Chronic peripheral edema: Echo in February with good function *PAF: s/p watchman device in February at [facility] *h/o TIA: on ASA/Plavix *FRANKY w/cpap: *HTN/HLD: *Depression: *GERD: *Concern for aspiration per history: P: -Hold diuretics/losartan -Hold gabapentin tonight and may reduce home dose -s/p IVF, f/u renal fxn -hold sedating meds tonight -cont home plavix/statin -home sinemet -home cpap - -ST eval, dysphagia diet -pt/ot -TEDS, elevate legs -ppx: lovenox/home ppi DNR Time Spent With Patient Time: Total time spent is greater than 50% in coordination of care (as documented) at patient's floor/unit and/or counseling patient:
[2020-07-23 20:25] LABS: ALT/SGPT 21 U/L (<40); AST/SGOT 30 U/L (<40); Albumin/Globulin Ratio 1.5 (1.0-2.3); Alkaline Phosphatase 106 U/L (39-117); Bilirubin,Direct < 0.2 mg/dL (<0.3); Bilirubin,Total 0.4 mg/dL (0.1-1.0); Blood Urea Nitrogen 24 mg/dL (8-23); Carbon Dioxide 20 mmol/L (22-30); Chloride 102 mmol/L (96-108); Globulin 2.7 gm/dL (2.2-3.7); Glomerular Filtration Rate 44; Glucose 83 mg/dL (70-105); Lactate Dehydrogenase 236 U/L (135-225); Phosphorous 2.2 mg/dL (2.5-4.5); Triglycerides 94 mg/dL (<150)
[2020-07-23] MEDS ORDERED: SELEGILINE HCL 5 MG PO SCH (22:21)
[2020-07-23] MEDS ORDERED: ONDANSETRON 4 MG/2 ML VIAL IV PRN (22:21)
[2020-07-23] MEDS ORDERED: POTASSIUM CHLORIDE 40 MEQ in DEXTROSE 5% IN WATER 500 ML IV PRN (22:21)
[2020-07-23] MEDS ORDERED: ACETAMINOPHEN 325 MG TABLET PO PRN (22:21)
[2020-07-23] MEDS ORDERED: MELATONIN 3 MG TABLET PO SCH (22:21)
[2020-07-23] MEDS ORDERED: IPRATROPIUM/ALBUTEROL 3 ML AMPUL.NEB NEB PRN (22:21)
[2020-07-23] MEDS ORDERED: SENNOSIDES 1 TABLET PO PRN (22:21)
[2020-07-23] MEDS ORDERED: QUETIAPINE 25 MG PO SCH (22:21)
[2020-07-23] MEDS ORDERED: MAGNESIUM SULFATE 2 GM/50 ML BAG IV PRN (22:21)
[2020-07-23] MEDS ORDERED: CARBIDOPA LEVODOPA PO SCH (22:21)
[2020-07-23] MEDS ORDERED: POTASSIUM CHLORIDE 20 MEQ TABLET PO PRN ×2 (22:21)
[2020-07-23] MEDS ORDERED: MELATONIN 3 MG TABLET PO ONE (23:38)
[2020-07-23] MEDS ORDERED: QUEtiapine 25 MG TABLET ONE (23:39)
[2020-07-24] MEDS: DOCUSATE SODIUM 100 MG CAPSULE PO SCH ×3 (00:10→21:01)
[2020-07-24] MEDS: 0.9 % SODIUM CHLORIDE 10 ML SYRINGE IV SCH ×4 (00:28→21:03)
--- NOTE | 2020-07-24 03:08 | XRay Report ---
CLINICAL INFORMATION: repeat for SOB COMPARISON: 07/23/2020 FINDINGS: Heart size, mediastinum and pulmonary vessels are unremarkable. Battery pack and lead wires from presumed thalamic stimulators are unremarkable. There is minor bibasilar atelectasis. No effusion IMPRESSION: Negative exam Interpreted and Authenticated by: Arturo Min 07/24/20
[2020-07-24 05:35] LABS: Basophils % (Manual) 1 % (0-2); Lymphocytes % 18 % (15-49); Monocytes % (Manual) 7 % (1-12); Platelet Estimate NORMAL (Normal); RBC Morphology NORMAL (Normal); Segmented Neutrophils % 74 % (38-78)
[2020-07-24 06:16] LABS: Basophils # (Auto) 0.04 K/mcL (0.00-0.20); Basophils % (Auto) 0.4 % (0.0-2.0); Eosinophils # (Auto) 0.33 K/mcL (0.00-0.70); Eosinophils % (Auto) 3.7 % (0.0-7.0); Hematocrit 44.6 % (41.0-55.0); Hemoglobin 14.7 g/dL (13.5-16.5); Lymphocytes # (Auto) 1.28 K/mcL (1.50-4.80); Lymphocytes % (Auto) 14.2 % (15.0-49.0); Mean Cell Volume 93.7 fL (80.0-100.0); Monocytes # (Auto) 0.52 K/mcL (0.10-0.90); Monocytes % (Auto) 5.8 % (1.0-12.0); Neutrophils % (Auto) 75.9 % (38.0-78.0); Platelet Count 157 K/mcL (140-440); RBC 4.76 M/mcL (4.50-5.90); Red Cell Distribution Width 13.4 % (11.5-14.5)
[2020-07-24 06:42] LABS: ALT/SGPT < 5 U/L (<40); AST/SGOT 22 U/L (<40); Albumin 3.4 gm/dL (3.2-5.2); Albumin/Globulin Ratio 1.4 (1.0-2.3); Alkaline Phosphatase 89 U/L (39-117); Bilirubin,Direct < 0.2 mg/dL (<0.3); Bilirubin,Total 0.4 mg/dL (0.1-1.0); Blood Urea Nitrogen 26 mg/dL (8-23); Calcium 8.1 mg/dL (8.6-10.4); Carbon Dioxide 26 mmol/L (22-30); Chloride 102 mmol/L (96-108); Globulin 2.4 gm/dL (2.2-3.7); Glomerular Filtration Rate 57; Glucose 105 mg/dL (70-105); Lactate Dehydrogenase 200 U/L (135-225); Phosphorous 2.8 mg/dL (2.5-4.5); Triglycerides 88 mg/dL (<150); Uric Acid 6.5 mg/dL (2.5-8.0)
[2020-07-24] MEDS ORDERED: OMEPRAZOLE 20 MG CAPSULE PO SCH (07:30)
--- NOTE | 2020-07-24 07:32 | Internal Med Progress Note ---
SUBJECTIVE Subjective Patient information: Note initiated : 07/24/20 at 7:29 am Service Date, if different from initiated Date: [] Patient: Manny Islas a 80 y/o M admitted on 07/23/20 for fall. Chief Complaint: [] Interval history: History of present illness: Mr. Islas is a 80 year old M Who presents after falling several times a day. Patient has a history of Parkinson's. And per his he has been getting weaker over the past 6 to 12 months. He does have a history of peripheral edema and is on furosemide and spironolactone. His furosemide was increased lately. Is also on gabapentin. Per his he has episodes where he seems weaker and not doing well this happens probably once a week. It is times where he will fall multiple times in a day and then will not fall at all for couple weeks. The reason his brought him in today is because when he fell he developed large wound on his arm and when EMS arrived to help bandage it they recommended him going to the ER. In ER was hypotensive with a 78/57 receive IV fluid with resolution of his blood pressure. Per the ER note he had positive orthostatic vital signs. He is weak and unable to stand. Per his he said he was little short of breath this morning but did not r esolve. Has a mild cough. Him and his report that he does cough with food and drink and taking medications. Chest x-ray was done several times and was unremarkable. Calcitonin was low. He had a mildly elevated white blood cell count but was afebrile. Urinalysis was unremarkable. He has a history of paroxysmal atrial fibrillation and had a watchman device placed at [facility] in February. At that time he was continued on his aspirin and started on Xarelto for 6 weeks and then after 6 weeks of Xarelto was stopped and was put back on his Plavix. He has a history of TIAs An echocardiogram showed good ejection fraction and good right ventricular systolic function. 1/5 Feeling better today, asking if he can go home. More alert but still appears a little bit drowsy. No new complaints other than some constipation. Edema in his legs significantly improved. Review of Systems: denies headache/fever/chills/nausea/vomiting/chest or abdominal pain/cough/dyspnea/diarrhea. Otherwise see above. Constitutional Vitals: Vital Signs Temp Pulse Resp BP Pulse Ox 97.1 F 63 20 105/64 98 07/24/20 07:01 07/24/20 06:01 07/24/20 07:06 07/24/20 07:05 07/24/20 07:01 Period Temp Pulse Resp BP Sys/Antony Pulse Ox Last 24 Hr 97.1 F-99.0 F 61-88 11-28 78-149/54-95 95-100 Intake and Output 07/23/20 07/24/20 07/24/20 21:59 05:59 13:59 Intake Total 1999 200 Output Total 525 Balance 1999 Weight 107.501 kg 107.093 kg Intake & Output: Intake & Output 07/23/20 07/24/20 07/24/20 21:59 05:59 13:59 Intake Total 1999 200 Output Total 525 Balance 1999 Weight 107.501 kg 107.093 kg Intake: IV 2000 Sodium Chloride 0.9% 1,000 ml @ 2000 Wide Open IV BOLUS ONE Rx#: [id number] Oral 200 Output: Void Amount 525 # of times incontinent of urine 0 Other: Urine Appearance Clear Urine Color Dark Yellow Exam: General: awake, weak but better, No acute Distress Eyes/N/T: EOMI, Head/Neck: neck supple, CV: irre irreg, No murmurs, Pulm: Clear b/l, no wheezing/rhonchi/rales Abd: soft, nontender, +BS x4 Ext: no clubbing/cyanosis, edema resolved Neuro: alert, no focal deficits, moves all extremities, Skin: warm/dry OBJ DATA Labs CBC & Chem 7: 07/24/20 04:57 07/24/20 04:57 Labs: Abnormal Lab Results 07/24/20 07/24/20 07/23/20 04:57 04:57 15:47 WBC MPV 11.0 H Lymph % (Auto) 14.2 L [facility] # (Auto) Lymph # (Auto) 1.28 L Absolute Neutrophils Carbon Dioxide Anion Gap POC BUN BUN 26 H Creatinine POC Creatinine Calcium 8.1 L POC WB Ioniz Calcium Phosphorus Lactate Dehydrogenase Total Protein 5.8 L Procalcitonin Urine Protein 30 A Hyaline Casts 16 H Urine Mucus Many A 07/23/20 07/23/20 07/23/20 14:45 14:45 14:45 WBC MPV Lymph % (Auto) [facility] # (Auto) Lymph # (Auto) Absolute Neutrophils Carbon Dioxide 20 L Anion Gap 20.0 H POC BUN 27 H BUN 24 H Creatinine 1.5 H POC Creatinine 1.5 H Calcium POC WB Ioniz Calcium 1.00 L Phosphorus 2.2 L Lactate Dehydrogenase 236 H Total Protein Procalcitonin 0.10 H Urine Protein Hyaline Casts Urine Mucus 07/23/20 14:45 WBC 12.1 H MPV 11.2 H Lymph % (Auto) [facility] # (Auto) 0.97 H Lymph # (Auto) Absolute Neutrophils 8.81 H Carbon Dioxide Anion Gap POC BUN BUN Creatinine POC Creatinine Calcium POC WB Ioniz Calcium Phosphorus Lactate Dehydrogenase Total Protein Procalcitonin Urine Protein Hyaline Casts Urine Mucus Meds: Medications Acetaminophen (Tylenol) 650 mg PO Q6HP PRN PRN Reason: PAIN/FEVER > 101 Albuterol/Ipratropium (Duoneb) 3 ml NEB Q4HP PRN PRN Reason: Shortness Of Breath Atorvastatin Calcium (Lipitor) 20 mg PO DAILY [facility] Carbidopa/Levodopa (Sinemet 25/100) 1 tab PO TID [facility] Last Admin: 07/24/20 00:13 Dose: 1 tab Documented by: Clonazepam (Klonopin) 1 mg PO HS [facility] Clopidogrel Bisulfate (Plavix) 75 mg PO QDAY [facility] Docusate Sodium (Colace) 100 mg PO BID [facility] Last Admin: 07/24/20 00:10 Dose: 100 mg Documented by: Donepezil HCl (Aricept) 10 mg PO DAILY [facility] Enoxaparin Sodium (Lovenox) 40 mg SQ DAILY [facility] Gabapentin (Neurontin) 300 mg PO QHS [facility] Potassium Chloride 40 meq/ (Dextrose) 520 mls @ 130 mls/hr IV UD PRN PRN Reason: Potassium < 3 Magnesium Sulfate (Magnesium Sulfate) 2 gm in 50 mls @ 50 mls/hr IV UD PRN PRN Reason: Magnesium </= 1.6 Melatonin (Melatonin 3mg Tablet) 3 mg PO QHS [facility] Last Admin: 07/24/20 00:11 Dose: 3 mg Documented by: Omeprazole (Prilosec) 20 mg PO ACB [facility] Ondansetron HCl (Zofran) 4 mg IV Q4HP PRN PRN Reason: Nausea And Vomiting Oxybutynin Chloride (Ditropan Xl) 15 mg PO QDAY [facility] Selegiline Hcl 5 Mg 1 dose PO BID [facility] Potassium Chloride (Kdur) 40 meq PO UD PRN PRN Reason: Potssium is 3-3.5 Potassium Chloride (Kdur) 40 meq PO UD PRN PRN Reason: Potassium < 3 Quetiapine Fumarate (Seroquel) 25 mg PO HS [facility] Senna (Senokot) 2 tab PO DAILYP PRN PRN Reason: Constipation Sodium Chloride (Saline Flush) 10 ml IV Q8 [facility] Last Admin: 07/24/20 05:41 Dose: 10 ml Documented by: A/P Narrative A/P Narrative: A: *Hypotension: responded initially to IVF. 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: 2/2 above -improved *Encephalopathy(Lethargy)/Gen weakness/Falls: 2/2 parkison's + plus meds (diuretics/Gabapentin) -improved *Parkinson's: declining over past year per *Dementia: *Chronic peripheral edema: Echo in February with good function *PAF: s/p watchman device in February at [facility] *h/o TIA: on ASA/Plavix *FRANKY w/cpap: *HTN/HLD: *Depression: *GERD: *Concern for aspiration per history: P: -Hold diuretics/losartan for now -gabapentin change qhs only, pt primarily taking only at night -cont home plavix/statin -home sinemet -home cpap -wound care to skin care -ST eval, dysphagia diet -pt/ot, CM for needs -TEDS, elevate legs -ppx: lovenox/home ppi DNR Time Spent With Patient Time: Total time spent is greater than 50% in coordination of care (as documented) at patient's floor/unit and/or counseling patient: QUALITY VTE Deep Vein Thrombosis/Pulmonary Embolism Present on Admission: Yes
[2020-07-24] MEDS ORDERED: OXYBUTYNIN CHLORIDE 5 MG TAB.XL.24H PO SCH (09:00)
[2020-07-24] MEDS ORDERED: SELEGILINE HCL 5 MG PO SCH (09:00)
[2020-07-24] MEDS ORDERED: CLOPIDOGREL 75 MG TABLET PO SCH (09:00)
[2020-07-24] MEDS ORDERED: ENOXAPARIN 40 MG/0.4 ML SYRINGE SQ SCH (09:00)
[2020-07-24] MEDS ORDERED: DONEPEZIL 10 MG TABLET PO SCH (09:00)
[2020-07-24] MEDS ORDERED: ROSUVASTATIN 10 MG TABLET PO SCH (09:00)
[2020-07-24] MEDS ORDERED: ATORVASTATIN 20 MG TABLET PO SCH (09:00)
[2020-07-24] MEDS ORDERED: POLYETHYLENE GLYCOL 3350 17 GM PACKET PO PRN ×2 (10:05→11:23)
--- NOTE | 2020-07-24 10:09 | Discharge Summary ---
Discharge Provider Provider Patient information: Note initiated : 07/24/20 at 10:07 am Service Date, if different from initiated Date: [] Patient: Manny Islas a 80 y/o M admitted on 07/23/20 for fall. Chief Complaint: [] Date of admission: 07/23/20 22:17 Discharge date: 07/25/20 Primary care physician: Brian Adam Consults: 07/23/20 Consult to Physician [CONS] Stat Comment: Consulting Provider: Tam Lowery Reason For Exam: Physician to Consult Discharge Meds Discharge Medications Home Medications carbidopa-levodopa 1 ea PO TID 03/27/16 [History Confirmed 07/23/20 Last Taken Unknown] omeprazole 20 mg PO ACB 03/27/16 [History Confirmed 07/23/20 Last Taken Unknown] aspirin 81 mg tablet,delayed release 81 mg PO QDAY 02/15/20 [History Confirmed 07/23/20 Last Taken Unknown] donepezil 10 mg tablet 10 mg PO DAILY 02/15/20 [History Confirmed 07/23/20 Last Taken Unknown] rosuvastatin 10 mg tablet 10 mg PO QDAY 02/15/20 [History Confirmed 07/23/20 Last Taken Unknown] selegiline HCl 5 mg capsule 5 mg PO BID 02/15/20 [History Confirmed 07/23/20 Last Taken Unknown] losartan 100 mg tablet 50 mg PO DAILY tab 03/16/20 [History Confirmed 07/23/20 Last Taken Unknown] oxybutynin chloride 15 mg tablet,extended release 24 hr 15 mg PO QDAY #30 tab 03/16/20 [Rx Confirmed 07/23/20 Last Taken Unknown] clopidogrel 75 mg PO QDAY 07/23/20 [History Confirmed 07/23/20 Last Taken Unknown] quetiapine 25 - 50 mg PO HS 07/23/20 [History Confirmed 07/23/20 Last Taken Unknown] gabapentin 300 mg PO QHS #1 cap 07/24/20 [Rx Last Taken Unknown] clonazepam 1 mg PO HS #10 tab 07/25/20 [Rx Last Taken Unknown] COURSE Hospital Course Hospital course: History of present illness: Mr. Islas is a 80 year old M Who presents after falling several times a day. Patient has a history of Parkinson's. And per his he has been getting weaker over the past 6 to 12 months. He does have a history of peripheral edema and is on furosemide and spironolactone. His furosemide was increased lately. Is also on gabapentin. Per his he has episodes where he seems weaker and not doing well this happens probably once a week. It is times where he will fall multiple times in a day and then will not fall at all for couple weeks. The reason his brought him in today is because when he fell he developed large wound on his arm and when EMS arrived to help bandage it they recommended him going to the ER. In ER was hypotensive with a 78/57 receive IV fluid with resolution of his blood pressure. Per the ER note he had positive orthostatic vital signs. He is weak and unable to stand. Per his he said he was little short of breath this morning but did not resolve. Has a mild cough. Him and his report that he does cough with food and drink and taking medications. Chest x-ray was done several times and was unremarkable. Calcitonin was low. He had a mildly elevated white blood cell count but was afebrile. Urinalysis was unremarkable. He has a history of paroxysmal atrial fibrillation and had a watchman device placed at [place] in February. At that time he was continued on his aspirin and started on Xarelto for 6 weeks and then after 6 weeks of Xarelto was stopped and was put back on his Plavix. He has a history of TIAs An echocardiogram showed good ejection fraction and good right ventricular syst olic function. 1/5 Feeling better today, asking if he can go home. More alert but still appears a little bit drowsy. No new complaints other than some constipation. Edema in his legs significantly improved. 1/6 More alert and awake today. No new complaints. Wanting to go home. Edema resolved in his legs. *hold diuretics until seen by PCP *given age and comorbidities patient is high risk for readmission A: *Hypotension: responded initially to IVF. 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: 2/2 above -improved *Encephalopathy(Lethargy)/Gen weakness/Falls: 2/2 parkison's + plus meds (diuretics/Gabapentin) -improved *Parkinson's: declining over past year per *Dementia: *Chronic peripheral edema: Echo in February with good function *PAF: s/p watchman device in February at [place] *h/o TIA: on ASA/Plavix *FRANKY w/cpap: *HTN/HLD: *Depression: *GERD: Discharge diagnosis: Hypertension medications used acute kidney injury encephalopathy Parkinson' Secondary discharge diagnosis: Dementia chronic peripheral edema proximate fibrillation history of TIA tract sleep apnea hypertension depression GERD Time Spent with Patient Time attestation: Total time spent providing and/or coordinating discharge services: Time spent: Greater than 30 minutes EXAM Constitutional Vitals: Temp Pulse Resp BP Pulse Ox 98.4 F 68 23 H 113/78 100 07/24/20 08:52 07/24/20 08:52 07/24/20 08:52 07/24/20 08:52 07/24/20 08:52 Discharge Data Data Completed and Pending Labs on day of discharge: Labs from last 24 hours 07/24/20 07/24/20 07/23/20 04:57 04:57 15:47 WBC 9.0 RBC 4.76 Hgb 14.7 Hct 44.6 POC Hct MCV 93.7 MCH 30.9 MCHC 33.0 RDW 13.4 Plt Count 157 MPV 11.0 H Neut % (Auto) 75.9 Lymph % (Auto) 14.2 L [place] % (Auto) 5.8 Eos % (Auto) 3.7 Baso % (Auto) 0.4 Lymph # (Auto) 1.28 L [place] # (Auto) 0.52 Eos # (Auto) 0.33 Baso # (Auto) 0.04 Seg Neutrophils % Lymphocytes % Monocytes % (Manual) Basophils % (Manual) Absolute Neutrophils 6.82 Platelet Estimate RBC Morphology VBG Lactic Acid POC Sodium Sodium 139 POC Potassium Potassium 3.8 POC Chloride Chloride 102 Carbon Dioxide 26 POC Total CO2 Anion Gap 11.0 POC BUN BUN 26 H Creatinine 1.2 POC Creatinine GFR Calculation 57 Glucose 105 POC Glucose Uric Acid 6.5 Calcium 8.1 L POC WB Ioniz Calcium Phosphorus 2.8 Magnesium 1.9 Total Bilirubin 0.4 Direct Bilirubin < 0.2 GGT 16 AST 22 ALT < 5 Alkaline Phosphatase 89 Lactate Dehydrogenase 200 Total Protein 5.8 L Albumin 3.4 Globulin 2.4 Albumin/Globulin Ratio 1.4 Triglycerides 88 Procalcitonin Urine Color Yellow Urine Appearance Clear Urine pH 5.0 Ur Specific [place] 1.014 Urine Protein 30 A Urine Glucose (UA) Negative Urine Ketones Negative Urine Occult Blood 0.03 Urine Nitrate Negative Urine Bilirubin Negative Urine Urobilinogen Negative Ur Leukocyte Esterase Negative Urine RBC 2 Urine WBC 4 Ur Squamous Epith Cells 2 Urine Bacteria None Hyaline Casts 16 H Urine Mucus Many A Ur Culture Indicated? No 07/23/20 07/23/20 07/23/20 15:14 14:45 14:45 WBC RBC Hgb Hct POC Hct MCV MCH MCHC RDW Plt Count MPV Neut % (Auto) Lymph % (Auto) [place] % (Auto) Eos % (Auto) Baso % (Auto) Lymph # (Auto) [place] # (Auto) Eos # (Auto) Baso # (Auto) Seg Neutrophils % 74 Lymphocytes % 18 Monocytes % (Manual) 7 Basophils % (Manual) 1 Absolute Neutrophils Platelet Estimate Normal RBC Morphology Normal VBG Lactic Acid 1.9 POC Sodium Sodium 142 POC Potassium Potassium 3.8 POC Chloride Chloride 102 Carbon Dioxide 20 L POC Total CO2 Anion Gap 20.0 H POC BUN BUN 24 H Creatinine 1.5 H POC Creatinine GFR Calculation 44 Glucose 83 POC Glucose Uric Acid 7.0 Calcium 9.0 POC WB Ioniz Calcium Phosphorus 2.2 L Magnesium 2.3 Total Bilirubin 0.4 Direct Bilirubin < 0.2 GGT 16 AST 30 ALT 21 Alkaline Phosphatase 106 Lactate Dehydrogenase 236 H Total Protein 6.7 Albumin 4.0 Globulin 2.7 Albumin/Globulin Ratio 1.5 Triglycerides 94 Procalcitonin Urine Color Urine Appearance Urine pH Ur Specific [place] Urine Protein Urine Glucose (UA) Urine Ketones Urine Occult Blood Urine Nitrate Urine Bilirubin Urine Urobilinogen Ur Leukocyte Esterase Urine RBC Urine WBC Ur Squamous Epith Cells Urine Bacteria Hyaline Casts Urine Mucus Ur Culture Indicated? 07/23/20 07/23/20 07/23/20 14:45 14:45 14:45 WBC 12.1 H RBC 5.31 Hgb 16.1 Hct 48.9 POC Hct 50 MCV 92.1 MCH 30.3 MCHC 32.9 RDW 13.4 Plt Count 205 MPV 11.2 H Neut % (Auto) 72.8 Lymph % (Auto) 15.5 [place] % (Auto) 8.0 Eos % (Auto) 3.1 Baso % (Auto) 0.6 Lymph # (Auto) 1.88 [place] # (Auto) 0.97 H Eos # (Auto) 0.37 Baso # (Auto) 0.07 Seg Neutrophils % Lymphocytes % Monocytes % (Manual) Basophils % (Manual) Absolute Neutrophils 8.81 H Platelet Estimate RBC Morphology VBG Lactic Acid POC Sodium 143 Sodium POC Potassium 3.7 Potassium POC Chloride 105 Chloride Carbon Dioxide POC Total CO2 26 Anion Gap POC BUN 27 H BUN Creatinine POC Creatinine 1.5 H GFR Calculation Glucose POC Glucose 84 Uric Acid Calcium POC WB Ioniz Calcium 1.00 L Phosphorus Magnesium Total Bilirubin Direct Bilirubin GGT AST ALT Alkaline Phosphatase Lactate Dehydrogenase Total Protein Albumin Globulin Albumin/Globulin Ratio Triglycerides Procalcitonin 0.10 H Urine Color Urine Appearance Urine pH Ur Specific [place] Urine Protein Urine Glucose (UA) Urine Ketones Urine Occult Blood Urine Nitrate Urine Bilirubin Urine Urobilinogen Ur Leukocyte Esterase Urine RBC Urine WBC Ur Squamous Epith Cells Urine Bacteria Hyaline Casts Urine Mucus Ur Culture Indicated? Discharge Plan Patient/Caregiver Discharge Instructions Activity: increase activity as tolerated Diet: Regular Diet Activity Restrictions/Additional Instructions: Check blood pressure twice daily. If systolic blood pressure less than 110, then hold losartan and call PCP. Wear compression stockings and elevate legs above heart in the evening. Prescriptions: Continued aspirin [Adult Low Dose Aspirin] 81 mg tablet,delayed release (DR/EC) 81 mg PO QDAY RF: 0 selegiline HCl 5 mg capsule 5 mg PO BID RF: 0 donepezil 10 mg tablet 10 mg PO DAILY RF: 0 rosuvastatin 10 mg tablet 10 mg PO QDAY RF: 0 omeprazole 20 MG capsule 20 mg PO ACB RF: 0 carbidopa-levodopa 1 EACH tablet,disintegrating 1 ea PO TID RF: 0 losartan 100 mg tablet 50 mg PO DAILY RF: 0 clopidogrel 75 mg Tablet 75 mg PO QDAY RF: 0 quetiapine 50 mg tablet 25 - 50 mg PO HS RF: 0 clonazepam 1 MG tablet 1 mg PO HS Qty: 10 RF: 0 oxybutynin chloride 15 mg tablet extended release 24hr 15 mg PO QDAY Qty: 30 RF: 11 Changed gabapentin 300 mg capsule 300 mg PO QHS Qty: 1 RF: 0 Discontinued spironolactone 25 mg tablet 25 mg PO QDAY RF: 0 furosemide 20 mg tablet 20 mg PO BID RF: 0 Follow Up Plan Follow up with: Brian Adam MD [Primary Care Provider] - Patient Disposition: Xfer SNF Prognosis: Undetermined Rehab Potential: Fair I certify that the patient requires SNF services: Yes Overall status at discharge: patient is progressing back to baseline Discharge Orders: Discharge Order (Routine); Ordered 07/25/20 Ordered By: Tam Lowery [facility] VTE Deep Vein Thrombosis/Pulmonary Embolism Present on Admission: Yes
[2020-07-24] MEDS ORDERED: MAGNESIUM SULFATE 2 GM/50 ML BAG IV PRN (11:23)
[2020-07-24] MEDS ORDERED: ONDANSETRON 4 MG/2 ML VIAL IV PRN (11:23)
[2020-07-24] MEDS ORDERED: IPRATROPIUM/ALBUTEROL 3 ML AMPUL.NEB NEB PRN (11:23)
[2020-07-24] MEDS ORDERED: POTASSIUM CHLORIDE 20 MEQ TABLET PO PRN ×2 (11:23)
[2020-07-24] MEDS ORDERED: SENNOSIDES 1 TABLET PO PRN (11:23)
[2020-07-24] MEDS ORDERED: POTASSIUM CHLORIDE 40 MEQ in DEXTROSE 5% IN WATER 500 ML IV PRN (11:23)
[2020-07-24] MEDS ORDERED: ACETAMINOPHEN 325 MG TABLET PO PRN (11:23)
[2020-07-24] MEDS ORDERED: QUEtiapine 25 MG TABLET PO SCH ×2 (21:00)
[2020-07-24] MEDS ORDERED: MELATONIN 3 MG TABLET PO SCH (21:00)
[2020-07-24] MEDS ORDERED: clonazePAM 1 MG TABLET PO SCH ×2 (21:00)
[2020-07-24] MEDS ORDERED: GABAPENTIN 300 MG CAPSULE PO SCH ×2 (21:00)
[2020-07-24] MEDS ORDERED: CARBIDOPA/LEVODOPA 25/100 TABLET PO SCH (23:35)
[2020-07-25] MEDS: 0.9 % SODIUM CHLORIDE 10 ML SYRINGE IV SCH (06:04)
[2020-07-25] MEDS ORDERED: OMEPRAZOLE 20 MG CAPSULE PO SCH (07:30)
[2020-07-25] MEDS ORDERED: CLOPIDOGREL 75 MG TABLET PO SCH (09:00)
[2020-07-25] MEDS ORDERED: DONEPEZIL 10 MG TABLET PO SCH (09:00)
[2020-07-25] MEDS ORDERED: OXYBUTYNIN CHLORIDE 5 MG TAB.XL.24H PO SCH (09:00)
[2020-07-25] MEDS ORDERED: ENOXAPARIN 40 MG/0.4 ML SYRINGE SQ SCH (09:00)
[2020-07-25] MEDS ORDERED: ATORVASTATIN 20 MG TABLET PO SCH (09:00)
[2020-07-25] MEDS: CARBIDOPA/LEVODOPA 25/100 TABLET PO SCH ×2 (09:41→14:48)
[2020-07-25] MEDS: DOCUSATE SODIUM 100 MG CAPSULE PO SCH (09:41)
--- NOTE | 2020-07-25 10:03 | Internal Med Progress Note ---
SUBJECTIVE Subjective Patient information: Note initiated : 07/25/20 at 10:01 am Service Date, if different from initiated Date: [] Patient: Manny Islas a 80 y/o M admitted on 07/23/20 for fall. Chief Complaint: [] Interval history: History of present illness: Mr. Islas is a 80 year old M Who presents after falling several times a day. Patient has a history of Parkinson's. And per his he has been getting weaker over the past 6 to 12 months. He does have a history of peripheral edema and is on furosemide and spironolactone. His furosemide was increased lately. Is also on gabapentin. Per his he has episodes where he seems weaker and not doing well this happens probably once a week. It is times where he will fall multiple times in a day and then will not fall at all for couple weeks. The reason his brought him in today is because when he fell he developed large wound on his arm and when EMS arrived to help bandage it they recommended him going to the ER. In ER was hypotensive with a 78/57 receive IV fluid with resolution of his blood pressure. Per the ER note he had positive orthostatic vital signs. He is weak and unable to stand. Per his he said he was little short of breath this morning but did not resolve. Has a mild cough. Him and his report that he does cough with food and drink and taking medications. Chest x-ray was done several times and was unremarkable. Calcitonin was low. He had a mildly elevated white blood cell count but was afebrile. Urinalysis was unremarkable. He has a history of paroxysmal atrial fibrillation and had a watchman device placed at [facility] in February. At that time he was continued on his aspirin and started on Xarelto for 6 weeks and then after 6 weeks of Xarelto was stopped and was put back on his Plavix. He has a history of TIAs An echocardiogram showed good ejection fraction and good right ventricular systolic function. 1/5 Feeling better today, asking if he can go home. More alert but still appears a little bit drowsy. No new complaints other than some constipation. Edema in his legs significantly improved. 1/6 More alert and awake today. No new complaints. Wanting to go home. Edema resolved in his legs. Review of Systems: denies headache/fever/chills/nausea/vomiting/chest or abdominal pain/cough/dyspnea/diarrhea. Otherwise see above. Constitutional Vitals: Vital Signs Temp Pulse Resp BP Pulse Ox 98.5 F 81 18 145/84 99 07/25/20 08:01 07/25/20 08:47 07/25/20 08:01 07/25/20 08:01 07/25/20 08:47 Period Temp Pulse Resp BP Sys/Antony Pulse Ox Last 24 Hr 97.0 F-98.8 F 45-84 12-24 113-149/61-88 81-100 Intake and Output 07/24/20 07/25/20 07/25/20 21:59 05:59 13:59 Intake Total 240 420 240 Output Total 400 225 400 Balance -160 195 -160 Weight 109.996 kg Intake & Output: Intake & Output 07/24/20 07/25/20 07/25/20 21:59 05:59 13:59 Intake Total 240 420 240 Output Total 400 225 400 Balance -160 195 -160 Weight 109.996 kg Intake: Oral 240 420 240 Output: Void Amount 400 225 400 Other: Meal Dinner Breakfast Percent of Meal Consumed 100% 100% Feeding Ability Independent Urine Appearance Clear Clear Urine Color Bright Yellow Pale Urine Odor Normal # Voids 1 Exam: General: awake, weak but better, No acute Distress Eyes/N/T: EOMI, Head/Neck: neck supple, CV: irre irreg, No murmurs, Pulm: Clear b/l, no wheezing/rhonchi/rales Abd: soft, nontender, +BS x4 Ext: no clubbing/cyanosis, edema resolved Neuro: alert, no focal deficits, moves all extremities, Skin: warm/dry OBJ DATA Labs CBC & Chem 7: 07/24/20 04:57 07/24/20 04:57 Labs: Abnormal Lab Results 07/24/20 07/24/20 07/23/20 04:57 04:57 15:47 WBC MPV 11.0 H Lymph % (Auto) 14.2 L Gaines # (Auto) Lymph # (Auto) 1.28 L Absolute Neutrophils Carbon Dioxide Anion Gap POC BUN BUN 26 H Creatinine POC Creatinine Calcium 8.1 L POC WB Ioniz Calcium Phosphorus Lactate Dehydrogenase Total Protein 5.8 L Procalcitonin Urine Protein 30 A Hyaline Casts 16 H Urine Mucus Many A 07/23/20 07/23/20 07/23/20 14:45 14:45 14:45 WBC MPV Lymph % (Auto) Gaines # (Auto) Lymph # (Auto) Absolute Neutrophils Carbon Dioxide 20 L Anion Gap 20.0 H POC BUN 27 H BUN 24 H Creatinine 1.5 H POC Creatinine 1.5 H Calcium POC WB Ioniz Calcium 1.00 L Phosphorus 2.2 L Lactate Dehydrogenase 236 H Total Protein Procalcitonin 0.10 H Urine Protein Hyaline Casts Urine Mucus 07/23/20 14:45 WBC 12.1 H MPV 11.2 H Lymph % (Auto) Gaines # (Auto) 0.97 H Lymph # (Auto) Absolute Neutrophils 8.81 H Carbon Dioxide Anion Gap POC BUN BUN Creatinine POC Creatinine Calcium POC WB Ioniz Calcium Phosphorus Lactate Dehydrogenase Total Protein Procalcitonin Urine Protein Hyaline Casts Urine Mucus Meds: Medications Acetaminophen (Tylenol) 650 mg PO Q6HP PRN PRN Reason: PAIN/FEVER > 101 Albuterol/Ipratropium (Duoneb) 3 ml NEB Q4HP PRN PRN Reason: Shortness Of Breath Atorvastatin Calcium (Lipitor) 20 mg PO DAILY [facility] Last Admin: 07/25/20 09:41 Dose: 20 mg Documented by: Carbidopa/Levodopa (Sinemet 25/100) 1 tab PO TID [facility] Last Admin: 07/25/20 09:41 Dose: 1 tab Documented by: Clonazepam (Klonopin) 1 mg PO [facility] Last Admin: 07/24/20 21:01 Dose: 1 mg Documented by: Clopidogrel Bisulfate (Plavix) 75 mg PO QDAY [facility] Last Admin: 07/25/20 09:41 Dose: 75 mg Documented by: Docusate Sodium (Colace) 100 mg PO BID [facility] Last Admin: 07/25/20 09:41 Dose: 100 mg Documented by: Donepezil HCl (Aricept) 10 mg PO DAILY [facility] Last Admin: 07/25/20 09:41 Dose: 10 mg Documented by: Enoxaparin Sodium (Lovenox) 40 mg SQ DAILY [facility] Last Admin: 07/25/20 09:42 Dose: 40 mg Documented by: Gabapentin (Neurontin) 300 mg PO QHS [facility] Last Admin: 07/24/20 21:02 Dose: 300 mg Documented by: Magnesium Sulfate (Magnesium Sulfate) 2 gm in 50 mls @ 50 mls/hr IV UD PRN PRN Reason: Magnesium </= 1.6 Potassium Chloride 40 meq/ (Dextrose) 520 mls @ 130 mls/hr IV UD PRN PRN Reason: Potassium < 3 Melatonin (Melatonin 3mg Tablet) 3 mg PO QHS [facility] Last Admin: 07/24/20 21:02 Dose: 3 mg Documented by: Omeprazole (Prilosec) 20 mg PO ACB [facility] Last Admin: 07/25/20 06:55 Dose: 20 mg Documented by: Ondansetron HCl (Zofran) 4 mg IV Q4HP PRN PRN Reason: Nausea And Vomiting Oxybutynin Chloride (Ditropan Xl) 15 mg PO QDAY [facility] Last Admin: 07/25/20 09:41 Dose: 15 mg Documented by: Selegiline Hcl 5 Mg (Tab) 1 dose PO BID [facility] Last Admin: 07/25/20 09:42 Dose: Not Given Documented by: Polyethylene Glycol (Miralax) 17 gm PO HSP PRN PRN Reason: Constipation Last Admin: 07/25/20 09:41 Dose: 17 gm Documented by: Potassium Chloride (Kdur) 40 meq PO UD PRN PRN Reason: Potssium is 3-3.5 Potassium Chloride (Kdur) 40 meq PO UD PRN PRN Reason: Potassium < 3 Quetiapine Fumarate (Seroquel) 25 mg PO HS [facility] Last Admin: 07/24/20 21:01 Dose: 25 mg Documented by: Senna (Senokot) 2 tab PO DAILYP PRN PRN Reason: Constipation Sodium Chloride (Saline Flush) 10 ml IV Q8 [facility] Last Admin: 07/25/20 06:04 Dose: 10 ml Documented by: A/P Narrative A/P Narrative: A: *Hypotension: responded initially to IVF. 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: 2/2 above -improved *Encephalopathy(Lethargy)/Gen weakness/Falls: 2/2 parkison's + plus meds (diuretics/Gabapentin) -improved *Parkinson's: declining over past year per *Dementia: *Chronic peripheral edema: Echo in February with good function *PAF: s/p watchman device in February at [facility] *h/o TIA: on ASA/Plavix *FRANKY w/cpap: *HTN/HLD: *Depression: *GERD: *Concern for aspiration per history: P: -restart ARB, hold diuretics until f/u with PCP -gabapentin change qhs only, pt primarily taking only at night -cont home plavix/statin -home sinemet -home cpap -wound care to skin care -ST eval, dysphagia diet -pt/ot, CM for needs SNF -TEDS, elevate legs -ppx: lovenox/home ppi DNR Time Spent With Patient Time: Total time spent is greater than 50% in coordination of care (as documented) at patient's floor/unit and/or counseling patient: QUALITY VTE Deep Vein Thrombosis/Pulmonary Embolism Present on Admission: Yes
== END 2020-07-25 15:10 | DRG 312 ==
LOC: ED 14:16 → ICU 22:17
PROVIDERS: ADMIT Internal Medicine; ATTEND Internal Medicine